=== PATIENT | female | born 1935 | race Caucasian/White ===

== ENCOUNTER 2023-02-13 08:11 | Day surgery (SDC) | payer MEDICARE, SELFPAY ==
[2023-02-13 08:30] VITALS: BP 195/58; PULSE 58; RESP 16; TEMP 35.9; O2SAT 95
--- NOTE | 2023-02-13 08:38 | W.ANESPRE ---
General Info Date of Service Date Performed: 02/13/23 Height: 5 ft 3 in Weight: 76.5 kg Body Mass Index (BMI): 29.8 Surgical Procedure: Operation Date: 02/13/23 10:40 Proposed Procedure Side Surgeon p Cataract Extraction with IOL Implant Right Pal Bhandari MD Meds Allergies and Home Medications Allergies Allergy/AdvReac Type Severity Reaction Status Date / Time No Known Allergies Allergy Verified 02/13/23 08:27 Home Medication Medication Instructions Recorded hydrochlorothiazide 25 mg tablet 25 mg PO DAILY 02/12/23 losartan 100 mg tablet 100 mg PO DAILY 02/12/23 meclizine 12.5 mg tablet 12.5 mg PO TID PRN 02/12/23 metoprolol succinate 50 mg 50 mg PO DAILY 02/12/23 tablet,extended release 24 hr simvastatin 20 mg tablet 20 mg PO HS 02/12/23 Current Visit Medications: Current Medications Generic Name Dose Route Start Last Admin Trade Name Freq PRN Reason Stop Dose Admin Acetaminophen 1,000 mg 02/13/23 06:00 Acetaminophen 500 Mg Tab PO 03/15/23 05:59 Q4H PRN PRN Balanced Salt Solution 500 ml 02/13/23 06:00 Balanced Salt Soln.-Plus 500 Ml Bag OP 03/15/23 05:59 DIRECTED HUBER Miscellaneous Medication 0 ml 02/13/23 06:00 Prednisolone 1%, Moxifloxacin 0.5%, Nepafenac 0.1% 5ml Btl OD 03/15/23 05:59 DIRECTED HUBER Miscellaneous Medication 0 ml 02/13/23 06:00 Tropicam./Phenyleph. 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 Medical History Medical History Acute bacterial conjunctivitis of both eyes per dtr has resolved HLD (hyperlipidemia) Hypertensive disorder Urinary incontinence Surgical History Surgical History History of ankle surgery Hx of colonoscopy Hx of tubal ligation Tobacco Smoking/Tobacco Use Status: Never Alcohol Alcohol Intake: current Alcohol intake frequency: 0-2 drinks per day Alcohol type: wine Substance Use Substance use: Never Substance use type: does not use Vital Signs and Lab Results Vital Signs Most Recent Vital Signs in EMR: Most Recent Vital Signs Temp Pulse Resp BP Pulse Ox 35.9 C L 58 L 16 195/58 H 95 02/13/23 08:30 02/13/23 08:30 02/13/23 08:30 02/13/23 08:30 02/13/23 08:30 Lab Results Blood Type / Crossmatch: No Data to Display Complete Blood Count: No Data to Display Complete Metabolic Panel: No Data to Display Liver Function Panel: No Data to Display Coagulation Panel: No Data to Display Cardiac Panel: No Data to Display Arterial Blood Gas: No Data to Display Venous Blood Gas: No Data to Display Pancreas Panel: No Data to Display Thyroid Panel: No Data to Display Infectious Disease: No Data to Display Blood Cultures: No Data to Display Toxicology Panel: No Data to Display Anesthesia Assessment and Plan Anesthesia History Personal History: No History of Anesthesia Complications Family History: No Family History of Anesthesia Complications Exercise Tolerance Exercise Tolerance: Metabolic Equivalents>4 Pertinent Negatives Pertinent Negatives: No Symptoms of GERD, No Major Cardiovascular Symptoms or Complaints and No Major Pulmonary Symptoms or Complaints Cardiac & Pulmonary Exam Cardiac Exam: Normal S1/S2 Heart Sounds Pulmonary Exam: Clear Bilateral Breath Sounds Implantable Cardiac Device Does patient have a Pacemaker or an ICD?: No Airway Exam Known Difficult Airway: No Mallampati Class: 2 Mouth Opening: Normal (> 3cm) Thyromental Distance: Greater than 3 cm Neck Range of Motion: Full ROM Neck Circumference: Normal Teeth Condition: Removable Dentures/Plates Upper, Removable Dentures/Plates Lower and Edentulous ASA Classification ASA Score: ASA 2 Emergency Case?: No NPO Status NPO Status: NPO Clears >2 hours, Solids >8 hours Anesthesia Plan Resuscitation Status: Full Code Anesthesia Technique: MAC Anesthesia Airway Planned: Natural Airway Monitors Used: Standard Monitors
[2023-02-13] MEDS: Tropicam./Phenyleph. (1/2.5%) 5 ML BTL OD ×3 (08:39→08:53)
[2023-02-13 08:41] VITALS: BMI 29.8
[2023-02-13] MEDS: Povidone-Iodine Ophth 30 ML BTL (10:18)
[2023-02-13] MEDS: Tetracaine 0.5% 4 ML BTL OD (10:18)
[2023-02-13] MEDS: Balanced Salt Soln.-PLUS 500 ML BAG OP (10:24)
[2023-02-13] MEDS: Duovisc Viscoelastic System EACH 1 EACH (10:25)
[2023-02-13] MEDS: Lidocaine 1% Pres-Free 5 ML VIAL (10:25)
[2023-02-13] MEDS: Phenylephrine/Lidocaine (15/10) MG/ML 1 ML VIAL (10:26)
[2023-02-13 10:42] VITALS: BP 184/55; PULSE 55; RESP 16; TEMP 36.1; O2SAT 97
--- NOTE | 2023-02-13 10:44 | W.PM.DSUDISC ---
Date of service: 02/13/23 Time of Service: 10:44 Discharge Plan Disposition Patient Disposition: Home Discharge Details Attending Provider: Pal Bhandari Primary Care Provider: Hugo Salazar Home Meds and New Rx's Prescriptions: No Action metoprolol succinate 50 mg tablet extended release 24 hr 50 mg PO DAILY Patient Comments: TAKE ONE TABLET BY MOUTH EVERY DAY meclizine 12.5 mg Tablet 12.5 mg PO TID PRN simvastatin 20 mg tablet 20 mg PO HS Patient Comments: TAKE ONE TABLET BY MOUTH EVERY DAY AT BEDTIME hydrochlorothiazide 25 mg tablet 25 mg PO DAILY Patient Comments: TAKE ONE TABLET BY MOUTH EVERY DAY losartan 100 mg tablet 100 mg PO DAILY Patient Comments: TAKE ONE TABLET BY MOUTH EVERY DAY Discharge Instructions Stand Alone Forms: Post-op Topical Cataract, Aric Pace (DSU) Discharge Orders Discharge Orders: Discharge Order (Routine); Ordered 02/13/23 Ordered By: Pal Bhandari DS: Diagnosis Discharge Diagnosis (1) Cortical age-related cataract, right eye: Status: Resolved (2) Nuclear age-related cataract, right eye: Status: Resolved
--- NOTE | 2023-02-13 10:45 | W.PM.OP ---
Date of service: 02/13/23 Time of Service: 10:45 Operative Note Operative Note DATE OF PROCEDURE: 02/13/23 PRE-OP DIAGNOSIS: Nuclear/cortical cataract, right eye POST-OP DIAGNOSIS: same PROCEDURE: Cataract extraction using phacoemulsification with intraocular lens implant, right eye SURGEON: Pal Bhandari ANESTHESIA TYPE: Local By Surgeon and MAC Refer to Anesthesia Record ESTIMATED BLOOD LOSS: 0 PATHOLOGY: none sent COMPLICATIONS: None Patient was transported to: same day Patient's condition: stable Implants: Blaze [employer] [id number] Indications: Progressive decreased vision due to cataract, right eye Procedure Description: CATARACT SURGERY OPERATIVE REPORT PREOPERATIVE DIAGNOSIS: Nuclear/cortical cataract, right eye POSTOPERATIVE DIAGNOSIS: Same OPERATION: Cataract extraction using phacoemulsification with posterior chamber intraocular lens implant, right eye. IOL: IOL Upholsterer Assembly [employer]/Model: Blaze Clareon [id number] IOL Power: + 20.5 diopters IOL Serial Number: [id number] Optic Diameter: 6.0mm Haptic/Overall Diameter: 13.0mm PHACO INFO: Blaze[employer]ansUniteurion Vision System with OZil and Active Fluidics Cumulative Dispersed Energy (CDE): 5.86 seconds SURGEON: Pal Bhandari MD, ALIVIA ANESTHESIA: Monitored Anesthesia Care (MAC), with local sub-tenon's anesthetic infiltration COMPLICATIONS: None SPECIMENS: None INDICATIONS FOR PROCEDURE: The patient is an 87-year-old lady was previously undergone cataract surgery in her left eye elsewhere. She has developed a dense nuclear/cortical cataract in the right eye and desires cataract surgery there and attempt to improve and maximize her vision. The option of cataract surgery was offered to the patient and she wished to proceed. See office notes for detailed information. PROCEDURE: The correct surgical eye was identified and marked as the right eye and the pupil was dilated in the preoperative area using mydriatics and cycloplegics. The dilated pupil size was 6.5 mm. The patient elected to proceed without oral sedation. The patient was brought to the operating room where cardiopulmonary monitoring was instituted and surgical time-out was performed, confirming the correct operative eye and IOL power. Topical anesthesia was administered and ophthalmic povidone-iodine 5% was instilled into the conjunctival fornices. The jeimy-ocular area was prepped with Betadine 10% solution and draped in the usual sterile fashion for intraocular surgery, including an aperture drape. A Tegaderm transparent film dressing was cut in half and used to cover the lashes and lid margins. Care was taken to sequester the lashes and lid margins under the Tegaderm dressing. A lid speculum was placed between the lids of the operative eye and the Ezequiel-Edna operating microscope was maneuvered into position. Markus scissors were then used to make a conjunctival buttonhole approximately 6mm posterior to the limbus in the inferonasal quadrant. Blunt dissection was carried out to expose bare sclera, and a blunt-tipped sub-tenon?s anesthesia cannula was introduced and passed posteriorly along the globe where non-preserved plain lidocaine was injected into posterior sub-Tenon?s space. A sideport knife was used to make a paracentesis port. Intraocular phenylephrine/lidocaine was injected into the anterior chamber. The anterior chamber was then filled with viscoelastic. A keratome knife was used to construct a two--plane clear corneal tunnel extending 2.0mm into clear cornea. A flap was raised on the anterior capsule and capsulorhexis forceps were used to complete a continuous curvilinear capsulorhexis of 5.5 mm. Balanced salt solution was then used to perform cortical cleaving hydrodissection and nuclear hydrodelineation until the lens could be freely rotated within the capsular bag. The lens nucleus was then disassembled and removed within the capsular bag and iris plane using phacoemulsification. Residual cortical material was removed using the I/A handpiece. The posterior capsule was carefully polished to remove as much residual lens epithelial cells as safely possible. The capsular bag was then inflated and the anterior chamber deepened with cohesive viscoelastic. The lens implant described above was inserted into the capsular bag using the Blaze [employer] Injector. A Kuglen hook was used to dial the IOL into position. Residual viscoelastic was then removed first from posterior to the IOL, then from the anterior chamber using the I/A handpiece. The lens implant was noted to center nicely within the capsular bag. The incisions were stromally hydrated, and the anterior chamber was reformed using BSS. Then 0.5cc of moxifloxacin 1.0mg/ml were injected into the capsular bag and anterior chamber. The incisions were checked with a Weck spear and found to be secure. Several drops of ophthalmic povidone-iodine 5% were then applied to the eye followed by two drops of Imprimis combination prednisolone/moxifloxacin/nepafenac solution. The drapes were removed and a clear plastic protective eye shield was placed over the eye. The patient was then returned to [facility] in stable condition.
--- NOTE | 2023-02-13 12:09 | W.ANESPOSTOP ---
Postoperative Evaluation Date, Time and Location Date Performed: 02/13/23 Time Performed: 10:48 Patient Location: Day Surgery Unit Vital Signs Most Recent Imported Vital Signs: Most Recent Vital Signs Temp Pulse Resp BP Pulse Ox 36.1 C L 55 L 16 184/55 H 97 02/13/23 10:42 02/13/23 10:42 02/13/23 10:42 02/13/23 10:42 02/13/23 10:42 Pain Score Most Recent Pain Score: Most Recent Pain Score Pain Level 0 02/13/23 10:42 Assessment Mental Status: Awake (Alert & Oriented to Patient Baseline) Airway and Respiratory Function: Patent airway with normal (patient baseline) respiratory exam Cardiovascular Function: Hemodynamically Stable Hydration Status: Adequately Hydrated Nausea & Vomiting: No Nausea or Vomiting Pain: Pt. Denies Any Pain Peripheral Nerve Block: Patient did not receive a nerve block
== END 2023-02-13 11:16 | disposition home or self-care (01) ==
PROVIDERS: PCP Nurse Practitioner Family; Visit Provider Ophthalmology
PROC: (CPT 66984; principal; 2023-02-13 10:30)
DX: H25.011 Cortical age-related cataract, right eye (principal); H25.11 Age-related nuclear cataract, right eye; I10 Essential (primary) hypertension
CPT/HCPCS: 66984; V2632